=== PATIENT | female | born 1960 | race Caucasian/White ===

== ENCOUNTER 2018-09-09 22:30 | Inpatient (IN) ==
--- NOTE | 2018-09-09 23:08 | Emergency Department Note ---
Disposition Clinical Impression: Bradycardia Syncope Qualifiers: Syncope type: unspecified Qualified Code(s): R55 - Syncope and collapse Head injury Qualifiers: Encounter type: initial encounter Qualified Code(s): S09.90XA - Unspecified injury of head, initial encounter Disposition: Admitted As Inpatient Condition: Good Time of Disposition: 00:53 General Adult HPI - General Chief complaint: ED General Medical Stated complaint: "fell at work and hit head" Time Seen by Provider: 09/09/18 22:54 Source: patient Mode of arrival: wheelchair Limitations: no limitations Nursing Notes Reviewed: Yes Vital Signs Reviewed: Yes - History of Present Illness HPI Narrative: Patient is a 58-year-old female with past medical history of diabetes. She presents today due to syncope. Patient states that she was at work, was getting ready to get something off a shelf, was reaching up and she said that she felt "funny ". She did not have any chest pain or shortness of breath at that time but said she felt maybe lightheaded. She then states that she passed out and fell backwards, hit her head on the hard ground. She woke up and was not confused. Denies any other symptoms of nausea, vomiting, numbness, tingling, weakness, headache, chest pain, shortness, chest pain, abdominal pain. She says that she drove home and continued to have episodes of "feeling funny ". She said that she took her pulse and it was 29. She does not have a history of any cardiac disease, previous AK or stent placement, history of previous episodes of bradycardia that she knows of, is not on any medications for rate control. She also notes that she just recently had cataract surgery within the past week and does use eye drops. She says that she is currently taking prednisone and is unsure of the other eye drop. Not on blood thinners - Related Data Home Medications Medication Instructions Recorded Confirmed Effexor 75 mg PO DAILY 07/25/17 09/10/18 Lyrica 100 mg PO DAILY 07/25/17 09/10/18 Aspirin 81 mg PO DAILY 09/10/18 09/10/18 Ketorolac OPTH Soln 1 drop LEFT EYE BID 09/10/18 09/10/18 PrednisoLONE Acetate 1% Opth 1 drop LEFT EYE BID 09/10/18 09/10/18 Allergies Allergy/AdvReac Type Severity Reaction Status Date / Time codeine Allergy Mild Rash Verified 07/25/17 14:28 lisinopril Allergy Anaphylaxis Verified 07/25/17 14:28 meperidine [From Demerol] Allergy Rash Verified 07/25/17 14:29 All systems ED: reviewed and negative except as stated. Constitutional: Denies: fever Cardiovascular: Reports: other (Bradycardia). Denies: chest pain Respiratory: Denies: cough, dyspnea Gastrointestinal: Denies: abdominal pain, nausea, vomiting, diarrhea Genitourinary: Denies: urgency, dysuria Musculoskeletal: Denies: back pain, neck pain Neurological: Reports: other (Head injury). Denies: headache, weakness, numbness, paresthesias Past Medical History - Past Medical History Attestation: Yes The following information was validated with the patient. Source: patient Medical history: Reports: non-contributory - Social History Smoking Status: Never smoker Smokeless Tobacco Status: No Alcohol use: Reports: none Physical Exam - General Limitations: no limitations General appearance: alert, in no apparent distress - Head Head exam: atraumatic, normocephalic, normal inspection, other (No evidence of dumont sign, raccoon eyes, no lacerations or lesions) - Eye Eye exam: Present: normal appearance, PERRL, EOMI - ENT ENT exam: normal exam, normal oropharynx, mucous membranes moist - Neck Neck exam: Present: normal inspection, full ROM, trachea midline. Absent: tenderness - Chest Chest inspection: Present: normal inspection, symmetric chest wall rise - Respiratory Respiratory exam: Present: normal lung sounds bilaterally - Cardiovascular Cardiovascular exam: Present: normal rhythm, bradycardia (30s), normal heart sounds. Absent: irregular rhythm - Abdominal Exam Abdominal exam: Present: soft, Non-Tender. Absent: tenderness, distention, gua rding, rebound, rigidity - Extremities Exam Extremities exam: Present: normal inspection, full ROM. Absent: tenderness, pedal edema - Neurological Exam Neurological exam: Present: alert, oriented X3, CN II-XII intact. Absent: motor sensory deficit - Expanded Neurological Exam Patient oriented to: Present: person, place, time Speech: Present: fluid speech Cranial nerves: EOM function (II, III, IV, ): Normal, facial sensation (V): Normal, facial palsy (VII): Normal, spinal accessory function (XI): Normal, tongue deviation (XII): Normal Motor strength - LUE: 5/5 Motor strength - RUE: 5/5 Motor strength - LLE: 5/5 Motor strength - RLE: 5/5 Sensory exam upper extremity: light touch: Normal Sensory exam lower extremity: light touch: Normal Coma Scale Eye Opening: Spontaneous Coma Scale Motor Response: Obeys Commands Coma Scale Verbal Response: Oriented Coma Scale Total: 15 - Psychiatric Psychiatric exam: Present: normal affect, normal mood - Skin Skin exam: Present: warm, dry, intact, normal color Course Course Narrative: Patient has no focal neurologic deficits on exam. No obvious signs of head injury. She does have a reported syncopal event with a fall and hitting her head with questionable LOC. We will go ahead and perform CT head and cervical spine. She was also found to be bradycardic on initial presentation with second-degree AV block. Blood pressure is stable at this time. She is currently asymptomatic. We will give the patient atropine to see if she is responsive. We will also go ahead and give glucagon as patient is currently on eyedrops after recent cataract surgery and could be possible beta manuel eyedrop. Also obtain basic lab work, CBC, BMP, troponin, chest x-ray. We will touch base with cardiology after atropine and glucagon to see patient needs a pacemaker placed. 00:42 troponin negative. No major concerning lab abnormality. Chest x-ray negative. CT head and cervical spine negative. Blood pressure remained stable throughout her stay. She remains bradycardic in the 30s to 40s. I talked with core man Dr. Harris, discussed her syncopal episode, heart rate, blood pressures, cardiac workup. Patient has had stable blood pressures and has been asymptomatic during her ED stay despite pulse in the 30s to 40s. We did try atropine and glucagon without any response and heart rate. He stated that since the patient is asymptomatic and blood pressure stable, he did not feel that the patient required a temporary pacer placement emergently. He recommended consult to cardiology, placing pads on the patient (this was done upon patient presentation along with crash cart at bedside), and monitoring in the ICU. He did state that transcutaneous pacing could be considered if the pat ientwas symptomatic. Patient is currently a somatic and has normal blood pressures that this will not be done at this time. I spoke with hospitalist Dr. Heart who is accepted the patient for ICU monitoring. Pads are in place. Patient will need telemetry monitoring overnight. Cardiology consult has been placed. Chest X-Ray 09/09/18 23:06 IMPRESSION: No acute cardiopulmonary disease. D/ / Dat Garza MD / Dat Garza MD Interpreting Provider: Dat Garza MD Cervical Spine CT 09/09/18 23:12 IMPRESSION: No acute abnormality of the cervical spine. D/ / Rolando Eden MD / Rolando Eden MD Interpreting Provider: Rolando Eden MD Head CT 09/09/18 23:12 IMPRESSION: No acute intracranial abnormality. Posterior scalp hematoma. D/ / Dat Garza MD / Dat Garza MD Interpreting Provider: Dat Garza MD Vital Signs Temperature 98.7 F 09/09/18 22:56 Pulse Rate 44 09/09/18 22:56 Respiratory Rate 17 09/09/18 22:56 Blood Pressure 120/62 09/09/18 22:56 O2 Sat by Pulse Oximetry 100 09/09/18 22:56 Temperature 98.7 F 09/09/18 22:56 Pulse Rate 42 09/10/18 00:13 Respiratory Rate 15 09/10/18 00:13 Blood Pressure 138/40 09/10/18 00:13 O2 Sat by Pulse Oximetry 100 09/10/18 00:13 Oxygen Delivery Oxygen Delivery Room Air Medical Decision Making - MDM Narrative Medical decision making narrative: Patient has no focal neurologic deficits on exam. No obvious signs of head injury. She does have a reported syncopal event with a fall and hitting her head with questionable LOC. We will go ahead and perform CT head and cervical spine. She was also found to be bradycardic on initial presentation with second-degree AV block. Blood pressure is stable at this time. She is currently asymptomatic. We will give the patient atropine to see if she is responsive. We will also go ahead and give glucagon as patient is currently on eyedrops after recent cataract surgery and could be possible beta manuel eyedrop. Also obtain basic lab work, CBC, BMP, troponin, chest x-ray. We will touch base with cardiology after atropine and glucagon to see patient needs a pacemaker placed. 00:42 troponin negative. No major concerning lab abnormality. Chest x-ray negative. CT head and cervical spine negative. Blood pressure remained stable throughout her stay. She remains bradycardic in the 30s to 40s. I talked with core man Dr. Harris, discussed her syncopal episode, heart rate, blood pressures, cardiac workup. Patient has had stable blood pressures and has been asymptomatic during her ED stay despite pulse in the 30s to 40s. We did try atropine and glucagon without any response and heart rate. He stated that since the patient is asymptomatic and blood pressure stable, he did not feel that the patient required a temporary pacer placement emergently. He recommended consult to cardiology, placing pads on the patient (this was done upon patient presentation along with crash cart at bedside), and monitoring in the ICU. He did state that transcutaneous pacing could be considered if the patientwas symptomatic. Patient is currently a somatic and has normal blood pressures that this will not be done at this time. I spoke with hospitalist Dr. Heart who is accepted the patient for ICU monitoring. Pads are in place. Patient will need telemetry monitoring overnight. Cardiology consult has been p michelleed. - Medical Records Medical records reviewed: Yes I reviewed the patient's medical records. - Lab Data Lab results reviewed: Yes I reviewed the patient's lab results. Result diagrams: 09/10/18 04:23 09/09/18 23:20 Lab Results 09/09/18 09/09/18 09/09/18 Range/Units 23:20 23:20 23:20 WBC 11.3 H (4.3-11.1) K/mcL RBC 3.80 L (3.82-4.97) M/mcL Hgb 11.3 L (11.5-15.4) g/dL Hct 34.9 L (35.3-44.9) % MCV 91.8 (83.0-100.0) fL MCH 29.7 (28.0-33.3) pg MCHC 32.4 (31.6-35.5) g/dL RDW 13.2 (11.5-14.5) % Plt Count 245 (140-400) K/mcL MPV 10.7 (9.4-12.4) fL Immature Gran % 0.3 (0-4) % Seg Neutrophils % 78.6 % Lymphocytes % 13.5 % Monocytes % 7.3 % Eosinophils % 0.0 % Basophils % 0.3 % Neutrophils # 8.9 (1.6-8.9) K/mcL Lymphocytes # 1.5 (0.6-4.6) K/mcL Monocytes # 0.8 (0.0-1.3) K/mcL Eosinophils # 0.0 (0.0-0.6) K/mcL Basophils # 0.0 (0.0-0.2) K/mcL PT 11.6 (9.4-12.1) Seconds INR 1.0 APTT 31.9 (26.0-36.0) Seconds Sodium 139 (136-145) mEq/L Potassium 4.6 (3.5-5.1) mEq/L Chloride 112 H (98-107) mEq/L Carbon Dioxide 20 L (23-29) mEq/L BUN 44 H (6-20) mg/dL Creatinine 0.98 (0.60-1.20) mg/dL Est GFR ( Amer) > 60 (> 60) Est GFR (Non-Af Amer) 58 L (> 60) BUN/Creatinine Ratio 45 H (6-26) Glucose 137 H (70-105) mg/dL Calculated Osmolality 301 H (280-300) Calcium 9.4 (8.6-10.3) mg/dL Troponin I < 0.03 (< 0.04) ng/mL - Radiology Data Radiology results reviewed: Yes I reviewed the patient's radiology results. - EKG Data EKG #1 EKG attestation: Yes I reviewed and interpreted this EKG. EKG results narrative: Sinus bradycardia with second-degree AV block. Rate 32. QRS 164. QTC 480. Normal axis. No acute ST elevation or depression. T-wave inversion in V2. This is changed from previous EKG which showed sinus tachycardia on 11/17/2013. Critical Care Time Critical Care Time: Yes Total Critical Care Time: 35 Attestation: Dr. Fernandez note: Patient seen in conjunction with emergency resident Dr. Claudio Contreras. Please see his charting for complete documentation. I spent [id number] time with the patient and I agree with patient's treatment and disposition. Patient was agustin serrano today and felt vague weakness. She checked her heart rate and it was low. She then had a syncopal event which was not preceded by headache chest pain shortness of breath nausea vomiting or diarrhea. Denies such symptoms prior. She is on a beta manuel eyedrop for her eye surgery about one week ago. Denies any history of same symptoms. Critical care time noted. Patient's are stable in the ER between 33 and 38 beats a minute without significant or persistent hypotension. Pacer pads were placed but not necessary to be used. S.B.A.R. - S.B.A.Maribell Situation: Demographics, MOA Background: Presenting Complaint, Relevant PMH, Meds, & Allergies Assessment: Vital Signs, Course and respsone to treatment, Exam Concerns, Patient/Family Expectation, Pertinant Lab Results Recommendation: Barrier(s) to disposition, Recommendation based on pending stud ies, treatments, or consults S.B.A.ROzzy Report Given to: Dr. Una Arizmendi Repor Time: 00:54
[2018-09-09] MEDS ORDERED: *HR* Atropine Sulfate 1 MG/10 ML SYRINGE IVP ONE (23:11)
[2018-09-09 23:42] LABS: Basophils % 0.3 %; Hematocrit 34.9 % (35.3-44.9); Hemoglobin 11.3 g/dL (11.5-15.4); Immature Granulocytes % 0.3 % (0-4); Lymphocytes # 1.5 K/mcL (0.6-4.6); Lymphocytes % 13.5 %; Mean Corpuscular HGB Conc 32.4 g/dL (31.6-35.5); Mean Corpuscular Hemoglobin 29.7 pg (28.0-33.3); Mean Corpuscular Volume 91.8 fL (83.0-100.0); Mean Platelet Volume 10.7 fL (9.4-12.4); Monocytes # 0.8 K/mcL (0.0-1.3); Monocytes % 7.3 %; Neutrophils # 8.9 K/mcL (1.6-8.9); Platelet Count 245 K/mcL (140-400); Red Cell Distribution Width 13.2 % (11.5-14.5); Segmented Neutrophils % 78.6 %
[2018-09-09 23:54] LABS: Prothrombin Time 11.6 Seconds (9.4-12.1)
[2018-09-09 23:57] LABS: Activated Partial Thrombo Time 31.9 Seconds (26.0-36.0)
[2018-09-09 23:59] LABS: BUN/Creatinine Ratio 45 (6-26); Blood Urea Nitrogen 44 mg/dL (6-20); Calcium 9.4 mg/dL (8.6-10.3); Carbon Dioxide 20 mEq/L (23-29); Chloride 112 mEq/L (98-107); Glucose 137 mg/dL (70-105); Osmolality,Calculated 301 (280-300); Potassium 4.6 mEq/L (3.5-5.1); Sodium 139 mEq/L (136-145); eGFR For Non-African Americans 58 (> 60)
[2018-09-10] LABS: Troponin I < 0.03 ng/mL (< 0.04)
--- NOTE | 2018-09-10 01:01 | Internal Med History&Physical ---
<Karlene Skinner - Last Filed: 09/10/18 06:02> Date of Encounter: 09/10/18 Time of Encounter: 01:00 Internal Medicine - H&P: HPI Admitted From: Emergency Dept Plans for Post Hospital Care: Home History of present illness: Ms. Crow is a 58 year old female who presents for bradycardia and unwitnessed syncopal episode today. Reports she was at client's house, reached overhead to get an item off a shelf just before she passed out, fell backwards and hit the back of her head. Admits vision change "everything got really bright " just before passing out. No CP, heart palpitations, dyspnea, nausea, vomiting. Admits to feeling diaphoretic and confused after waking up. Patient states that she woke up this morning feeling perfectly fine. Earlier in the day, states her vision got really bright while bending forward, she felt off-balance and had to sit down and felt diaphoretic, but this resolved on its own. Denies personal h/o DE, abnormal cardiac rhythm, PE, seizure. Denies recent medication changes. On arrival to ED, she was asymptomatic with HR 30's-40's. Hemodynamically stable with SBP 120-130's. CT imaging of head negative for acute intracranial abnormalities. CT cervical spine negative for fracture, showed normal alignment. CXR showed no acute cardiopulmonary process. CBC and BMP were without significant derrangement. EKG showed sinus bradycardia with 2nd degree AV block, no evidence of ischemia. Atropine and glucagon were not effective in raising HR. ED consulted cardiology, who recommended placement of transcutaneous pacer pads and admission to ICU for close observation. At time of my exam, patient was alert and appeared comfortable. She endorsed no complaints. 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, never smoker, no EtOH, no drugs FH: CVA, heart disease Past Med Surg Social Fam HX - Past Medical History Medical history: non-contributory, DVT, diabetes Psychiatric history: no psych history - Past Surgical History Additional surgical history: BKA of left leg - Social History Smoking Status: Never smoker Smokeless Tobacco Status: No Alcohol use: none Drug use: none Internal Medicine - H&P: Meds Effexor 75 mg PO DAILY 07/25/17 [History] Lyrica 100 mg PO DAILY 07/25/17 [History] Aspirin 81 mg PO DAILY 09/10/18 [History] Ketorolac OPTH Soln 1 drop LEFT EYE BID 09/10/18 [History] PrednisoLONE Acetate 1% Opth 1 drop LEFT EYE BID 09/10/18 [History] Allergy/AdvReac Type Severity Reaction Status Date / Time codeine Allergy Mild Rash Verified 07/25/17 14:28 lisinopril Allergy Anaphylaxis Verified 07/25/17 14:28 meperidine [From Demerol] Allergy Rash Verified 07/25/17 14:29 All Systems PM: A 10-system review of systems was performed and is negative for pertinent findings except as documented above in the HPI. - Constitutional Vitals: Temp Pulse Resp BP Pulse Ox 98.7 F 33 19 132/43 97 09/09/18 22:56 09/10/18 00:51 09/10/18 00:51 09/10/18 00:51 09/10/18 00:51 General appearance: Present: A&O X 3, pleasant, no acute distress, answers questions appropriately Exam: . - Head Additional comments: Posterior scalp laceration, no active bleeding - Eye Eye exam: Present: EOMI, normal appearance, PERRL. Absent: nystagmus - Neck Neck exam general surgery: Present: full ROM, normal inspection, supple - Respiratory Respiratory exam: Present: CTAB. Absent: rales, respiratory distress, rhonchi, wheezes - Cardiovascular Cardiovascular exam: Present: bradycardia, irregular rhythm, +S1, +S2. Absent: diastolic murmur, systolic murmur - GI/Abdominal GI/Abdominal exam: Present: normal bowel sounds, soft. Absent: tenderness - Extremities Exam Extremities exam: Present: warm, radial pulses palpable and symmetrical. Absent: cyanotic Additional comments: Left BKA; amputation of first 3 digits of right foot - Back Exam Back exam: Present: normal inspection - Neurological Exam Neurological exam: Present: alert, CN II-XII intact, oriented X3, no focal deficits, strengths equal and symetr throughout. Absent: facial droop, speech deficit - Psychiatric Psychiatric exam: Present: normal affect, normal mood - Skin Skin exam: Present: dry, warm. Absent: cyanosis, diaphoretic Internal Med - H&P Results - Labs CBC & Chem 7: 09/10/18 04:23 09/10/18 04:23 Labs: Short CBC 09/09/18 Range/Units 23:20 WBC 11.3 H (4.3-11.1) K/mcL Hgb 11.3 L (11.5-15.4) g/dL Hct 34.9 L (35.3-44.9) % Plt Count 245 (140-400) K/mcL Neutrophils # 8.9 (1.6-8.9) K/mcL BMP 09/09/18 23:20 Sodium 139 Potassium 4.6 Chloride 112 H Carbon Dioxide 20 L BUN 44 H Creatinine 0.98 Glucose 137 H Calcium 9.4 Cardiac Enzymes 09/09/18 Range/Units 23:20 Troponin I < 0.03 (< 0.04) ng/mL - Impressions ITS Impressions Chest X-Ray 09/09/18 23:06 IMPRESSION: No acute cardiopulmonary disease. D/ / Dat Garza MD / Dat Garza MD Interpreting Provider: Dat Garza MD Cervical Spine CT 09/09/18 23:12 IMPRESSION: No acute abnormality of the cervical spine. D/ / Rolando Eden MD / Rolando Eden MD Interpreting Provider: Rolando Eden MD Head CT 09/09/18 23:12 IMPRESSION: No acute intracranial abnormality. Posterior scalp hematoma. D/ / Dat Garza MD / Dat Garza MD Interpreting Provider: Dat Garza MD - Assessment and Plan (1) Bradycardia Current Visit: Yes Status: Acute Assessment and plan: - Hemodynamically stable, continued bradycardia - HR 30's-40's, stable BP, asymptomatic in ED - Second degree AV block on EKG - EKG also shows sinus bradycardia, CO intervals don't appear prolonged, narrow QRS complex, no ST segment elevations or depressions - Telemetry strips show progressive lengthening of CO intervals before dropped QRS - Troponin < 0.03 - Electrolytes WNL - HR didn't respond to atropine or glucagon - Takes no AV node blocking medications at home - ED consulted cardiology's Dr. Harris, recommended placement of transcutaneous pads - Cardiology consulted - Continue cardiac monitoring - Trend troponins x 2 - TSH level - Check magnesium - Repeat EKG in AM (2) Syncope Current Visit: Yes Status: Acute Assessment and plan: - Syncopal episode likely d/t decreased HR resulting in temporarily insufficient perfusion to brain - Trauma to head as result of fall - CXR no acute cardiopulmonary processes - CT head no acute intracranial abnormalities, posterior scalp hematoma - CT cervical spine no acute abnormalities, normal alignment - Blood glucose 137 - Hgb 11.3 - Electrolytes WNL - Troponin < 0.03 - Plan as above Qualifiers: Syncope type: unspecified Qualified Code(s): R55 - Syncope and collapse (3) History of gastric bypass Current Visit: Yes Status: Acute (4) DVT prophylaxis Current Visit: Yes Status: Acute Assessment and plan: SubQ heparin (5) History of left below knee amputation Current Visit: Yes Status: Acute - Time Spent With Patient Total time spent is greater than 50% in coordination of care (as documented) at patient's floor/unit and/or counseling patient: <Alex Cole - Last Filed: 09/10/18 06:28> Date of Encounter: 09/10/18 Time of Encounter: 04:40 Past Med Surg Social Fam HX - Past Medical History Attestation: Yes The following information was validated with the patient. Source: patient - Constitutional Constitutional: no chills, no fever(s) - EENT Eyes: no change in vision Ears: no ear pain, no tinnitus Nose, mouth and throat: no nasal congestion, no nasal discharge, no sore throat - Cardiovascular Cardiovascular ROS IM: irregular heart rhythm, lightheadedness, syncope, no chest pain, no dyspnea, no edema, no orthopnea - Respiratory Respiratory: no cough, no hemoptysis, no chest congestion, no excessive phlegm production, no change in phlegm color - Gastrointestinal Gastrointestinal: no abdominal pain, no diarrhea, no hematemesis, no hematochezia, no melena, no vomiting - Genitourinary Genitourinary: no dysuria, no flank pain, no hematuria - Musculoskeletal Musculoskeletal ROS IM: no arthralgias, no back pain - Integumentary Integumentary IM: no rash, no jaundice - Neurological Neurological ROS: no convulsions, no dizziness, no focal weakness, no frequent falls, no headache(s), no numbness, no vertigo - Psychiatric Psychiatric: no anxiety, no depression - Endocrine Endocrine IM: no polydipsia, no polyuria - Allergic/Immunologic Allergic/Immunologic: no GI upset with certain foods - Constitutional Vitals: Temp Pulse Resp BP Pulse Ox 97.7 F 46 13 145/54 95 09/10/18 02:00 09/10/18 06:00 09/10/18 06:00 09/10/18 06:00 09/10/18 06:00 General appearance: Present: A&O X 3, pleasant, no acute distress - Eye Eye exam: Present: EOMI, PERRL. Absent: scleral icterus - ENT ENT exam: Present: mucous membranes dry, normal exam, normal oropharynx - Neck Neck exam general surgery: Present: full ROM, supple, trachea midline. Absent: tenderness, nuchal rigidity, thyromegaly - Respiratory Respiratory exam: Present: CTAB - Cardiovascular Cardiovascular exam: Present: bradycardia, +S1, +S2. Absent: diastolic murmur, systolic murmur - GI/Abdominal GI/Abdominal exam: Present: normal bowel sounds, soft. Absent: guarding, hepatomegaly, mass, rebound, splenomegaly, tenderness - Extremities Exam Extremities exam: Present: full ROM, warm, radial pulses palpable and symmetri manuel. Absent: calf tenderness - Back Exam Back exam: Absent: CVA tenderness (L), CVA tenderness (R) - Neurological Exam Neurological exam: Present: alert, CN II-XII intact, oriented X3, no focal deficits, strengths equal and symetr throughout - Psychiatric Psychiatric exam: Present: normal affect, normal mood - Skin Skin exam: Present: dry, intact, warm Internal Med - H&P Results - Labs CBC & Chem 7: 09/10/18 04:23 09/10/18 04:23 Labs: Short CBC 09/09/18 09/10/18 Range/Units 23:20 04:23 WBC 11.3 H 8.5 (4.3-11.1) K/mcL Hgb 11.3 L 9.8 L D (11.5-15.4) g/dL Hct 34.9 L 30.5 L (35.3-44.9) % Plt Count 245 210 (140-400) K/mcL Neutrophils # 8.9 6.0 (1.6-8.9) K/mcL BMP 09/09/18 09/10/18 23:20 04:23 Sodium 139 141 Potassium 4.6 4.0 Chloride 112 H 113 H Carbon Dioxide 20 L 22 L BUN 44 H 40 H Creatinine 0.98 0.68 Glucose 137 H 107 H Calcium 9.4 9.0 Cardiac Enzymes 09/09/18 09/10/18 Range/Units 23:20 04:23 Troponin I < 0.03 < 0.03 (< 0.04) ng/mL Liver Function 09/10/18 Range/Units 04:23 Total Bilirubin 0.5 (0.3-1.0) mg/dL AST 15 (13-39) Units/L ALT 12 (7-52) Units/L Alkaline Phosphatase 78 (34-104) Units/L Albumin 3.8 (3.5-5.7) g/dL - EKG Data -: EKG Interpreted by Myself - EKG Data Prior EKG available for review: no EKG comments: 09/10/18 06:24 Mobitz II - Impressions ITS Impressions Chest X-Ray 09/09/18 23:06 IMPRESSION: No acute cardiopulmonary disease. D/ / Dat Garza MD / Dat Garza MD Interpreting Provider: Dat Garza MD Cervical Spine CT 09/09/18 23:12 IMPRESSION: No acute abnormality of the cervical spine. D/ / Rolando Eden MD / Rolando Eden MD Interpreting Provider: Rolando Eden MD Head CT 09/09/18 23:12 IMPRESSION: No acute intracranial abnormality. Posterior scalp hematoma. D/ / Dat Garza MD / Dat Garza MD Interpreting Provider: Dat Garza MD - Diagnostic Studies Chest x-ray Status: image reviewed by me (negative) - Assessment and Plan (1) Bradycardia Current Visit: Yes Status: Acute (2) Syncope Current Visit: Yes Status: Acute Qualifiers: Syncope type: unspecified Qualified Code(s): R55 - Syncope and collapse (3) DVT prophylaxis Current Visit: Yes Status: Acute (4) History of gastric bypass Current Visit: Yes Status: Acute (5) History of left below knee amputation Current Visit: Yes Status: Acute - Time Spent With Patient Total time spent is greater than 50% in coordination of care (as documented) at patient's floor/unit and/or counseling patient: - Attending Attestation I discussed patient OUZINKIE, past medical history, review of systems, lab data, imaging data, and exam findings with Dr. Alarcon. I then saw and examined patient independently in the ICU. Currently, she is sleeping and easily arousable. She is asymptomatic. Her heart rate wavers between a low of 29 and 50 as I am examining and interviewing her. Blood pressure is preserved. I reviewed her medications and she takes no AV natalie blocking agents. She confirms to me at least 2 episodes of syncope yesterday and likely several more. She has never had any prior heart disease history. Given her sustained bradycardia and concern for Mobitz 2 pattern on EKG, I am concerned that she likely needs at least temporary pacemaker and, possibly, permanent pacemaker if her bradycardia persists. Cardiology has been consulted and we will await their recommendations. Meanwhile, we will trend troponins, order an ECHO, and monitor her in ICU until her cardiac status stabilizes. Other than my comments above and documented exam findings, I agree with Dr. Alarcon's assessment and plan.
[2018-09-10] MEDS ORDERED: Naloxone 0.4 MG/ML INJ IVP PRN (01:35)
[2018-09-10 04:40] LABS: Basophils % 0.2 %; Hematocrit 30.5 % (35.3-44.9); Hemoglobin 9.8 g/dL (11.5-15.4); Immature Granulocytes % 0.2 % (0-4); Lymphocytes # 1.9 K/mcL (0.6-4.6); Lymphocytes % 21.9 %; Mean Corpuscular HGB Conc 32.1 g/dL (31.6-35.5); Mean Corpuscular Hemoglobin 29.2 pg (28.0-33.3); Mean Corpuscular Volume 90.8 fL (83.0-100.0); Mean Platelet Volume 10.4 fL (9.4-12.4); Monocytes # 0.6 K/mcL (0.0-1.3); Monocytes % 7.2 %; Platelet Count 210 K/mcL (140-400); Red Blood Count 3.36 M/mcL (3.82-4.97); Red Cell Distribution Width 13.1 % (11.5-14.5); Segmented Neutrophils % 70.5 %
[2018-09-10 05:02] LABS: Alanine Aminotransferase 12 Units/L (7-52); Albumin 3.8 g/dL (3.5-5.7); Albumin/Globulin Ratio 1.5 (1.1-2.2); Alkaline Phosphatase 78 Units/L (34-104); Aspartate Amino Transferase 15 Units/L (13-39); BUN/Creatinine Ratio 59 (6-26); Bilirubin,Total 0.5 mg/dL (0.3-1.0); Blood Urea Nitrogen 40 mg/dL (6-20); Carbon Dioxide 22 mEq/L (23-29); Chloride 113 mEq/L (98-107); Globulin 2.5 g/dL (2.4-3.5); Glucose 107 mg/dL (70-105); Magnesium 1.9 mg/dL (1.6-2.6); Osmolality,Calculated 302 (280-300); Sodium 141 mEq/L (136-145); Total Protein 6.3 g/dL (6.4-8.9); eGFR For Non-African Americans > 60 (> 60)
[2018-09-10] MEDS ORDERED: *HR* Atropine Sulfate 1 MG/10 ML SYRINGE ONE (06:03)
[2018-09-10] MEDS: *HR* Heparin 5,000 UNIT/ML VIAL SQ SCH ×2 (06:07→18:38)
--- NOTE | 2018-09-10 10:06 | Cardiology Consult Note ---
<Aracelis Singleton - Last Filed: 09/10/18 14:20> Date of Encounter: 09/10/18 Time of Encounter: 10:05 Assessment and Plan (1) Second degree AV block Current Visit: Yes Status: Acute Patient found to have second degree AV block, which transitions between Mobitz type 1 and Mobitz type 2 on telemetry Sympomatic with progressive fatigue, lightheadedness, and syncopal episode EKG shows sinus bradycardia with HR 32, RBBB, intermittent, 2:1 second degree AV block Mobitz type 1. ECHO- sinus bradycardia, HR 40-50's, LVEF 65%, moderate LV diastolic dysfunction, normal RV structure and function, mild tricuspid regurgitation, no pulmonary hypertension. No improvement after atropine and glucagon Patient will need permanent pacemaker placed, she is amenable and interventionalist will be consulted for placement. (2) Syncope Current Visit: Yes Status: Acute Patient presents after syncopal episode States that she has had increasing fatigue and lightheadedness over several weeks CT head and cervical spine negative for abnormalities Secondary to 2nd degree AV block Patient to have pacemaker placement today. Qualifiers: Syncope type: unspecified Qualified Code(s): R55 - Syncope and collapse (3) DVT prophylaxis Current Visit: Yes Status: Acute SQ heparin Discussion w patient/family: The assessment and plan as outlined above was discussed with the patient and/or family members who expressed understanding and agreement. All questions were answered. Thank you for involving us in the care of your patient. Please call with any questions. History of Present Illness Consult date: 09/10/18 Consult reason: bradycardia Chief complaint: syncope History of present illness: Ms. Crow is a 58 year old female who presented after syncopal episode. PMH of DM s/p left BKA for charcot foot, obesity s/p gastric bypass and recent cataract surgery 2 weeks ago. She states that she has had progressive fatigue and lightheadedness over the past several weeks. 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 Later that day while at home she was in her garage, and reaching overhead to grab an item when she had a syncopal episode and fell backwards on to the ground. She struck the back of her head on the floor. She regained consciousness and presented to ED. She denies any seizure, chest pain, shortness of breath, incontinence during the episode. Past Med Surg Social Fam HX - Past Medical History Medical history: non-contributory, DVT, diabetes Psychiatric history: no psych history - Past Surgical History Additional surgical history: BKA of left leg, gastric bypass. - Social History Smoking Status: Never smoker Smokeless Tobacco Status: No Alcohol use: none Drug use: none Medications and Allergies Pregabalin [Lyrica] 100 mg PO BID 07/25/17 [History] Venlafaxine HCl [Venlafaxine HCl ER] 75 mg PO DAILY 07/25/17 [History] Aspirin [Adult Aspirin] 81 mg PO DAILY 09/10/18 [History] Gatifloxacin [Zymaxid] 2.5 ml LEFT EYE BID 09/10/18 [History] Ketorolac OPTH Soln [Acular] 1 drop LEFT EYE BID 09/10/18 [History] PrednisoLONE Acetate 1% Opth [PredFORTE 1%] 1 drop LEFT EYE BID 09/10/18 [History] Allergy/AdvReac Type Severity Reaction Status Date / Time codeine Allergy Mild Rash Verified 07/25/17 14:28 lisinopril Allergy Anaphylaxis Verified 07/25/17 14:28 meperidine [From Demerol] Allergy Rash Verified 07/25/17 14:29 All Systems Review: The remainder of the systems were reviewed and are negative - Constitutional Constitutional: weakness, no chills, no fever(s), no frequent falls - EENT Eyes: no loss of vision Nose, mouth and throat: no dysphagia - Cardiovascular Cardiovascular: lightheadedness, syncope, no chest pain at rest, no chest pain with exertion, no diaphoresis, no dyspnea at rest, no dyspnea on exertion, no leg edema, no orthopnea, no palpitations, no paroxysmal nocturnal dyspnea - Respiratory Respiratory: no cough, no dyspnea - Gastrointestinal Gastrointestinal: no abdominal pain, no constipation, no diarrhea, no hematochezia, no melena - Musculoskeletal Musculoskeletal: no arthralgias, no myalgias - Integumentary Integumentary: no erythema, no rash - Neurological Neurological: dizziness, numbness, syncope, tingling - Psychiatric Psychiatric: no anxiety, no depression - Hematological/Lymphatic Hematologic/Lymphatic: no easy bleeding, no easy bruising Physical Examination Vital Signs, Last 4 Hours Temp Pulse Resp BP Pulse Ox 09/10/18 10:00 48 18 123/108 96 09/10/18 09:00 45 12 158/60 95 09/10/18 08:00 44 11 142/47 94 09/10/18 07:35 97.9 F 09/10/18 07:00 37 16 157/55 94 General: Conversant, No Apparent Distress HEENT: Atraumatic, Normocephaly, Mucus Membranes Moist Neck: No JVD, Normal carotid pulses Cardiac: Normal S1 and S2, No Murmur, Other (Bradycardic, HR in the 30-40's) Lungs: Normal Breath Sounds, No Wheeze, Rales, Rhonchi Neuro: Alert and responsive, No focal deficits noted Abdomen: Soft, Non-Tender Skin: No rashes noted on visualized skin Musculoskeletal: No Chest Wall Tenderness Extremities: No Clubbing, No Cyanosis, No Edema, Normal Pulses (Pulses 3+, symmetrical, slow rate) Results 09/10/18 04:23 09/10/18 04:23 Lab Results 09/09/18 09/09/18 09/09/18 23:20 23:20 23:20 WBC 11.3 H Hgb 11.3 L Hct 34.9 L Plt Count 245 INR 1.0 APTT 31.9 Sodium 139 Potassium 4.6 Chloride 112 H Carbon Dioxide 20 L BUN 44 H Creatinine 0.98 Glucose 137 H Calcium 9.4 Magnesium Total Bilirubin AST ALT Alkaline Phosphatase Troponin I < 0.03 TSH 09/10/18 09/10/18 09/10/18 04:23 04:23 04:23 WBC 8.5 Hgb 9.8 L D Hct 30.5 L Plt Count 210 INR APTT Sodium 141 Potassium 4.0 Chloride 113 H Carbon Dioxide 22 L BUN 40 H Creatinine 0.68 Glucose 107 H Calcium 9.0 Magnesium 1.9 Total Bilirubin 0.5 AST 15 ALT 12 Alkaline Phosphatase 78 Troponin I TSH 0.811 09/10/18 04:23 WBC Hgb Hct Plt Count INR APTT Sodium Potassium Chloride Carbon Dioxide BUN Creatinine Glucose Calcium Magnesium Total Bilirubin AST ALT Alkaline Phosphatase Troponin I < 0.03 TSH Consult Discharge Plan - Plan Referrals: Dat Briceño [Primary Care Provider] - <HuiTrip medrano A - Last Filed: 09/10/18 14:38> Date of Encounter: 09/10/18 - Attending Attestation I have personally performed a face to face evaluation on this patient. I have reviewed and agree with the documented findings and care plan as documented by the resident. History and Exam by me shows: 58-year-old female with history of diabetes, left BKA, admitted with syncope and found to be in bradycardia. She has had fatigue over the past couple of weeks. AAOX3 in NAD at the bedside Hemodynamically stable Cardiopulmonary exam revealed S1, S2, no murmur; clear lungs Rhythm reviewed - Mobitz 1 and Mobitz 2 second-degree heart block Echo preserved EF, no significant valvular heart disease Impression/plan: No reversible causes of bradycardia identified. Symptomatic second-degree AV block warrants permanent pacemaker placement Trip Kraus MD FAC Assessment and Plan Discussion w patient/family: The assessment and plan as outlined above was discussed with the patient and/or family members who expressed understanding and agreement. All questions were answered. Thank you for involving us in the care of your patient. Please call with any questions. History of Present Illness History of present illness: Ms. Crow is a 58 year old female All Systems Review: The remainder of the systems were reviewed and are negative Physical Examination Vital Signs, Last 4 Hours Temp Pulse Resp BP Pulse Ox 09/10/18 13:57 98.4 F 60 16 152/65 95 09/10/18 12:00 40 18 145/45 95 09/10/18 11:45 98.3 F 09/10/18 11:00 48 115/87 Results 09/10/18 04:23 09/10/18 04:23 Lab Results 09/09/18 09/09/18 09/09/18 23:20 23:20 23:20 WBC 11.3 H Hgb 11.3 L Hct 34.9 L Plt Count 245 INR 1.0 APTT 31.9 Sodium 139 Potassium 4.6 Chloride 112 H Carbon Dioxide 20 L BUN 44 H Creatinine 0.98 Glucose 137 H Calcium 9.4 Magnesium Total Bilirubin AST ALT Alkaline Phosphatase Troponin I < 0.03 TSH 09/10/18 09/10/18 09/10/18 04:23 04:23 04:23 WBC 8.5 Hgb 9.8 L D Hct 30.5 L Plt Count 210 INR APTT Sodium 141 Potassium 4.0 Chloride 113 H Carbon Dioxide 22 L BUN 40 H Creatinine 0.68 Glucose 107 H Calcium 9.0 Magnesium 1.9 Total Bilirubin 0.5 AST 15 ALT 12 Alkaline Phosphatase 78 Troponin I TSH 0.811 09/10/18 09/10/18 04:23 09:42 WBC Hgb Hct Plt Count INR APTT Sodium Potassium Chloride Carbon Dioxide BUN Creatinine Glucose Calcium Magnesium Total Bilirubin AST ALT Alkaline Phosphatase Troponin I < 0.03 < 0.03 TSH
--- NOTE | 2018-09-10 10:26 | Electrocardiograph Report ---
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
--- NOTE | 2018-09-10 11:45 | Event Note ---
Date of Encounter: 09/10/18 Time of Encounter: 11:00 - Cardiology Event Note Electrophysiology consulted by cardiology for 2nd degree AV block and bradycardia. Patient c/o intermittent presyncopal symptoms starting friday. On Friday she experienced syncopal event while standing in her garage. She is found to have symptomatic bradycardia with intermittent 2:1 and mobitz type I AV block (wenckebach) , RBBB. TTE completed shows preserved EF. She does not take any medications that would cause bradycardia. Electrolytes are within normal range. No significant improvement in HR in last 24 hours. HR currently 29-40, b/p 128/100. Discussed with Dr. Pio Tabor, PPM recommended and planned for today at 12:15.
[2018-09-10] MEDS ORDERED: CeFAZolin Syr 2,000MG/20 ML 2,000 MG/20 ML SYRINGE IVPB ONE (11:46)
[2018-09-10] MEDS ORDERED: 0.9 % Sodium Chloride 500 ML ONE (12:23)
[2018-09-10] MEDS ORDERED: Water for inj. (sterile) 10 ML IV ONE (12:23)
--- NOTE | 2018-09-10 12:35 | Pre-Sedation Evaluation ---
Pre-sedation evaluation - Pre-sedation checklist Date of procedure: 09/10/18 Procedure: pacemaker Recent Vitals: Last Vital Signs Temp 98.3 F 09/10/18 11:45 Pulse 40 09/10/18 12:00 Resp 18 09/10/18 12:00 BP 145/45 09/10/18 12:00 Pulse Ox 95 09/10/18 12:00 H&P (including ROS) documented in medical record: Yes Dietary Status: NPO after Midnight Airway Assessment: Patient can open mouth completely, TMJ function normal, Micrognathia (under-bite, receding chin) absent Possible difficult airway: No ASA Classification *see protocol: CLASS II-Mild systemic disease Plan of Care: Pt appropriate candidate for procedure/moderate/conscious sedation, Risks/benefits of procedure/sedation discussed w/ patient/family
[2018-09-10] MEDS ORDERED: *HR* Midazolam HCl 2 MG/2 ML VIAL ONE (12:55)
[2018-09-10] MEDS ORDERED: *HR* FentaNYL (PF) 100 MCG/2 ML VIAL ONE (12:55)
[2018-09-10] MEDS ORDERED: 0.9 % Sodium Chloride 1,000 ML ONE (12:55)
--- NOTE | 2018-09-10 14:09 | Event Note ---
Date of Encounter: 09/10/18 Time of Encounter: 14:08 Evaluated patient in ICU. Comfortable. Continues to have generalized weakness and fatigue. Scheduled for permanent pacemaker placement later today. We will continue to monitor patient in ICU till after pacemaker placed. She may be transferred to a different [facility] with telemetry floor after that
--- NOTE | 2018-09-10 15:19 | Event Note ---
Date of Encounter: 09/10/18 Time of Encounter: 09:45 Interval history: Ms. Crow is a 58-year-old female who presented with unwitnessed syncopal episode yesterday. She stated that she was and she had 2 episodes were applied Colt very tight and she felt dizzy. Then when she was at a client's house she reached over DNI and the light seemed to get very bright and she passed out and the back of her head. She denied any chest pain, heart palpitations, dyspnea, nausea or vomiting. She did wake diaphoretic and confused. In the ED her heart rate was in the 30s to 40s and she was hemodynamically stable with CT head no acute intracranial abnormalities, CT cervical spine negative for fracture with normal alignment. Chest x-ray showed no acute cardiopulmonary process. CBC and BMP were within normal limits. EKG showed bradycardia with second-degree AV block and no evidence of ischemia. Patient was given atropine and glucagon and these did not raise her heart rate she was admitted to the ICU with transcutaneous pacer pads for close observation Cardiology's planning on pacemaker insertion today. Patient was seen and examined at bedside today. She is in no acute distress. She stated that she was feeling fine, she was afraid to get up due to worrying about passing out. She did say that she had a slight headache from hitting her head yesterday. She denied any chest pain, dictations, racing heartbeat, shortness of breath, cough, nausea, vomiting, diarrhea Physical Exam: General: A O 3, answers questions appropriately, no acute distress Head: normocephalic, atraumatic Eyes: KATHY, no icterus Cardio: Bradycardic, occasional will drop beats, no mumurs, rubs, or gallops Respiratory: CTAB, no wheezing, rhonchi, rales Abd: normal bowel sounds, no gaurding or rigidity Extremties: no pedal edema, pulses equal bilaterally, warm, Charcot foot Skin: warm, dry, intact A/P: Bradycardia Secondary to Mobitz type I and Mobitz type II arrhythmia Hemodynamically stable with continued bradycardia in the 30s to 40s and stable blood pressure EKG showed sinus bradycardia, IA intervals but do not appear prolonged, narrow QRS complex, no ST segment elevations or depressions, second-degree AV blocks Prone and less than 0.03 Tara's within normal limits NER the heart rate did not respond to atropine and glucagon and transient Mertzon pacer pads were placed Cardiology was consulted and they will be placing a pacemaker today Syncope Likely due to decreased heart rate with insufficient perfusion to the brain CT head showed no acute intracranial abnormalities in the posterior scalp hematoma CT cervical spine no acute abnormalities in normal alignment Chest x-ray showed no acute cardiopulmonary process Clinical glucose on admission was 137, hemoglobin 11.3, Tara is within normal limits, and troponin less than 0.03 Plan as above bradycardia History of gastric bypass History of below the knee amputation on the left for Charcot foot History of diabetes Patient currently diet controlled Continue to monitor DVT prophylaxis 7 case heparin
[2018-09-10] MEDS ORDERED: Acetaminophen 325 MG TABLET PO PRN (17:06)
[2018-09-10] MEDS: Acetaminophen 325 MG TABLET PO PRN (17:47)
[2018-09-10] MEDS: Venlafaxine XR (24 HR) 75 MG CAP.ER.24H PO SCH (21:02)
[2018-09-10] MEDS: Pregabalin 50 MG CAPSULE PO SCH (21:02)
[2018-09-11] MEDS: Acetaminophen 325 MG TABLET PO PRN ×2 (00:26→08:57)
[2018-09-11 01:04] LABS: Basophils % 0.5 %; Hematocrit 31.6 % (35.3-44.9); Hemoglobin 10.4 g/dL (11.5-15.4); Immature Granulocytes % 0.2 % (0-4); Lymphocytes # 1.6 K/mcL (0.6-4.6); Lymphocytes % 27.3 %; Mean Corpuscular HGB Conc 32.9 g/dL (31.6-35.5); Mean Corpuscular Hemoglobin 29.8 pg (28.0-33.3); Mean Corpuscular Volume 90.5 fL (83.0-100.0); Mean Platelet Volume 10.2 fL (9.4-12.4); Monocytes # 0.5 K/mcL (0.0-1.3); Monocytes % 8.9 %; Neutrophils # 3.7 K/mcL (1.6-8.9); Platelet Count 196 K/mcL (140-400); Red Blood Count 3.49 M/mcL (3.82-4.97); Red Cell Distribution Width 12.8 % (11.5-14.5); Segmented Neutrophils % 63.1 %
[2018-09-11 01:23] LABS: BUN/Creatinine Ratio 35 (6-26); Blood Urea Nitrogen 23 mg/dL (6-20); Calcium 8.7 mg/dL (8.6-10.3); Carbon Dioxide 25 mEq/L (23-29); Chloride 110 mEq/L (98-107); Glucose 83 mg/dL (70-105); Osmolality,Calculated 293 (280-300); Sodium 140 mEq/L (136-145); eGFR For Non-African Americans > 60 (> 60)
[2018-09-11] MEDS: *HR* Heparin 5,000 UNIT/ML VIAL SQ SCH (05:09)
[2018-09-11] MEDS: Pregabalin 50 MG CAPSULE PO SCH (09:14)
[2018-09-11] MEDS: Venlafaxine XR (24 HR) 75 MG CAP.ER.24H PO SCH (09:14)
--- NOTE | 2018-09-11 10:20 | Cardiology Progress Note ---
Date of Encounter: 09/11/18 Time of Encounter: 10:14 Assessment and Plan (1) Second degree AV block Current Visit: Yes Status: Acute Patient found to have second degree AV block type I, 2:1 block and persistent bradycardia. She was having presyncopal and syncopal events for two days. ECHO- sinus bradycardia, HR 40-50's, LVEF 65%, moderate LV diastolic dysfunction, normal RV structure and function, mild tricuspid regurgitation, no pulmonary hypertension. No improvement after atropine and glucagon Dual chamber PPM inserted 09/10/[address] Pio Tabor. There was no complication from her procedure. Post day one device check shows normal functioning device. CXR pending. If no concerning finding she can be discharged home with activity restrictions. Restrictions reviewed and patient voiced understanding. Out-pt f/u will be coordinated by [facility] in one week. ACTIVITY: Moderate activity for the next 7 days. No lifting more than 5 pounds (gallon of milk) for 4-6 weeks. Avoid lifting your arm on the same side as the device for 4 weeks. BATHING /SHOWERING: Do not remove the large bandage over the site for 2 days. Do not allow the device to get wet for 7-10 days. You may bathe/shower, but do not use soap and water on the site. When bathing, keep the site dry by covering with Saran wrap or a towel. WOUND CARE: The white steri-strips will start to peel away and come off after 14 days, or your doctor will remove them after [address] anything into or on top of the incision. Do not use cotton swabs. Do not use any antibiotic ointment or Vitamin E on the site. REMINDERS: You may use electrical devices, such as, microwaves, hair dryers, electric razors, electric blankets, etc. as long as they are in good condition and kept 6-8 inches away from the device. It is recommended to use cell phones on the opposite side of your device. Notify security personnel at the airport that you have a device before you go through airport security screening. When at places with security monitors, such as a grocery store, do not linger near these monitors. It is fine to walk past them in a normal manner. Refer to your owners manual for more specific directions. CARRY YOUR PACEMAKER/ICD CARD WITH YOU AT ALL TIMES Return to work as instructed per physician Resume driving as instructed per physician Keep all scheduled follow up appointments Resume medications as instructed Contact [facility] ( ) if: You develop excessive bleeding from insertion or wound site not controlled by applying pressure You develop a fever greater than 101 degrees Fahrenheit Your incision becomes reddened at or around the site Your incision develops yellowish or greenish drainage or development of white pimple-like bumps You experience excessive pain You develop swelling in your ankles You experience muscle switching You develop excessive hiccupping If you experience chest pain, shortness of breath, dizziness, or extreme tiredness, stop the activity and rest. Please notify [facility] office if you experience any of these symptoms and they are not relieved by rest please call 911! (2) Bradycardia Current Visit: Yes Status: Acute (3) Syncope Current Visit: Yes Status: Acute D/t bradycardia and AV block. S/p PPM. Qualifiers: Syncope type: unspecified Qualified Code(s): R55 - Syncope and collapse Discussion w patient/family: The assessment and plan as outlined above was discussed with the patient and/or family members who expressed understanding and agreement. All questions were answered. Thank you for involving us in the care of your patient. Please call with any questions. Subjective Principal diagnosis: symptomatic bradycardia, 2nd degree AV block. Interval history: Ms. Crow is without complaint today. Denies pain at PPM insertion site. Objective Vital Signs, Last 4 Hours Temp Pulse Resp BP Pulse Ox 09/11/18 09:25 66 20 132/46 95 09/11/18 08:00 67 20 153/61 97 09/11/18 07:35 98.0 F General: Conversant, No Apparent Distress HEENT: Atraumatic, Normocephaly, Mucus Membranes Moist Neck: No JVD, Normal carotid pulses Cardiac: Reg Rate and Rhythm, Normal S1 and S2, No Murmur, Other (SIRISHA dressing d/I, no redness or drainage. ) Lungs: Normal Breath Sounds, No Wheeze, Rales, Rhonchi Neuro: Alert and responsive, No focal deficits noted Abdomen: Soft, Non-Tender Skin: No rashes noted on visualized skin Musculoskeletal: No Chest Wall Tenderness Extremities: No Clubbing, No Cyanosis, No Edema, Normal Pulses Results 09/11/18 00:42 09/11/18 00:42 Lab Results 09/10/18 09/11/18 09/11/18 09:42 00:42 00:42 WBC 5.8 Hgb 10.4 L Hct 31.6 L Plt Count 196 Sodium 140 Potassium 4.0 Chloride 110 H Carbon Dioxide 25 BUN 23 H Creatinine 0.65 Glucose 83 Calcium 8.7 Troponin I < 0.03 - Imaging and Cardiology Echo: report reviewed - EKG Interpretation EKG results cardiology: personally reviewed Consult Discharge Plan - Plan Referrals: Dat Briceño [Primary Care Provider] -
--- NOTE | 2018-09-11 13:16 | Discharge Summary ---
<Alondra Perez E - Last Filed: 09/11/18 13:50> Orders not resulted at time of discharge: Pending orders 09/10/18 06:00 ECG 12 lead ECG [ECG] AM 0600 09/10/18 11:45 CL Insert Permanent Pacemaker [CL] Routine 09/11/18 06:00 XR chest 2V [XR] Routine Date of Encounter: 09/11/18 Time of Encounter: 09:30 - Discharge Diagnosis (1) Bradycardia Priority: Primary Status: Acute (2) DVT prophylaxis Priority: Secondary Status: Acute (3) Head injury Priority: Primary Status: Acute Qualifiers: Encounter type: initial encounter Qualified Code(s): S09.90XA - Unspecified injury of head, initial encounter (4) Second degree AV block Priority: Primary Status: Acute (5) Syncope Priority: Primary Status: Acute Qualifiers: Syncope type: unspecified Qualified Code(s): R55 - Syncope and collapse Hospital course: Ms. Crow is a 58 year old female with history of Charcot foot, DM, HTN, VTK, below the knee amputation on the left, gastric bypass, cataract surgery left eye. Presented with bradycardia after unwitnessed syncopal episode after she reached over to [employer] shelf she had her vision gets very bright and then she fell backwards and hit her head after passing out. She denied any chest pain, palpitations, dyspnea, nausea, vomiting on admission. 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 She had a few other instances of lites getting very bright and feeling off balance she was able to sit down before she passed out. On arrival to the ED she was asymptomatic and heart rate in the 30s to 40s, hemodynamically stable with systolic blood press ures of [address] showed negative for any acute intracranial abnormalities but did show a hematoma. CT cervical spine negative for fracture. Chest x-ray no acute cardiopulmonary process. Labs showed no significant derangements. EKG showed sinus bradycardia was secondary AV block. Atropine and glucagon were used to try to raise her heart rate these failed, transcutaneous pacer pads were placed and she was admitted to the ICU. On further evaluation cardiology reported both a Mobitz type I and Mobitz type II. She was taken for pacemaker insertion yesterday. No complications of the surgery. Patient is to follow-up with cardiology for further recommendations. Discharge discussed with: patient - Time Spent with Patient Total time spent providing and/or coordinating discharge services: - Discharge Medications Prescriptions: Continued Pregabalin [Lyrica] 100 mg PO BID Venlafaxine HCl [Venlafaxine HCl ER] 75 mg PO DAILY Aspirin [Adult Aspirin] 81 mg PO DAILY PrednisoLONE Acetate 1% Opth [PredFORTE 1%] 1 drop LEFT EYE BID Ketorolac OPTH Soln [Acular] 1 drop LEFT EYE BID Gatifloxacin [Zymaxid] 2.5 ml LEFT EYE BID Home Medications: Pregabalin [Lyrica] 100 mg PO BID 07/25/17 [History] Venlafaxine HCl [Venlafaxine HCl ER] 75 mg PO DAILY 07/25/17 [History] Aspirin [Adult Aspirin] 81 mg PO DAILY 09/10/18 [History] Gatifloxacin [Zymaxid] 2.5 ml LEFT EYE BID 09/10/18 [History] Ketorolac OPTH Soln [Acular] 1 drop LEFT EYE BID 09/10/18 [History] PrednisoLONE Acetate 1% Opth [PredFORTE 1%] 1 drop LEFT EYE BID 09/10/18 [History] Allergies/Adverse Reactions: Allergy/AdvReac Type Severity Reaction Status Date / Time codeine Allergy Mild Rash Verified 07/25/17 14:28 lisinopril Allergy Anaphylaxis Verified 07/25/17 14:28 meperidine [From Demerol] Allergy Rash Verified 07/25/17 14:29 Date of admission: 09/10/18 06:20 Primary care physician: Dat Briceño Consults: 09/10/18 00:40 Consult to Cardiology [CONS] Stat Comment: Spoke with Dr. Harris Consulting Provider: Cardiology [facility] Reason for Consult: bradycardia Time Notified: 00:40 Call Completed: Yes Discharging clinician: Magui Sanchez Anticipated date of discharge: 09/11/18 - Constitutional Vitals: Temp Pulse Resp BP Pulse Ox 98.3 F 62 20 165/62 96 09/11/18 11:00 09/11/18 12:00 09/11/18 12:00 09/11/18 11:00 09/11/18 12:00 General appearance: Present: A&O X 3, pleasant, no acute distress Exam: General: AAO 3, answers questions appropriately, no acute distress Head: normocephalic, atraumatic Eyes: KATHY, no icterus Cardio: RRR, no mumurs, rubs, or gallops Respiratory: CTAB, no wheezing, rhonchi, rales Abd: normal bowel sounds, no gaurding or rigidity Extremties: no peda edema, pulses equal bilaterally, warm Skin: warm, dry, intact - Patient Status Disposition: Home, Self-Care Condition: Good Functional capacity at discharge: independent ambulation Overall status at discharge: patient is back to baseline - Discharge Instructions Follow Up With: Dat Briceño [Primary Care Provider] - Pio Tabor MD [Partnered Physician] - Additional Instructions: ACTIVITY: Moderate activity for the next 7 days. No lifting more than 5 pounds (gallon of milk) for 4-6 weeks. Avoid lifting your arm on the same side as the device for 4 weeks. BATHING /SHOWERING: Do not remove the large bandage over the site for 2 days. Do not allow the device to get wet for 7-10 days. You may bathe/shower, but do not use soap and water on the site. When bathing, keep the site dry by covering with Saran wrap or a towel. WOUND CARE: The white steri-strips will start to peel away and come off after 14 days, or your doctor will remove them after [address] anything into or on top of the incision. Do not use cotton swabs. Do not use any antibiotic ointment or Vitamin E on the site. REMINDERS: You may use electrical devices, such as, microwaves, hair dryers, electric razors, electric blankets, etc. as long as they are in good condition and kept 6-8 inches away from the device. It is recommended to use cell phones on the opposite side of your device. Notify security personnel at the airport that you have a device before you go through airport security screening. When at places with security monitors, such as a grocery store, do not linger near these monitors. It is fine to walk past them in a normal manner. Refer to your owners manual for more specific directions. CARRY YOUR PACEMAKER/ICD CARD WITH YOU AT ALL TIMES Return to work as instructed per physician Resume driving as instructed per physician Keep all scheduled follow up appointments Resume medications as instructed Contact [facility] ( ) if: You develop excessive bleeding from insertion or wound site not controlled by applying pressure You develop a fever greater than 101 degrees Fahrenheit Your incision becomes reddened at or around the site Your incision develops yellowish or greenish drainage or development of white pimple-like bumps You experience excessive pain You develop swelling in your ankles You experience muscle switching You develop excessive hiccupping If you experience chest pain, shortness of breath, dizziness, or extreme tiredness, stop the activity and rest. Please notify [facility] office if you experience any of these symptoms and they are not relieved by rest please call 911! - Diet and Activity Activity: increase activity as tolerated Diet: advance to your usual diet <Magui Sanchez - Last Filed: 09/11/18 14:47> Orders not resulted at time of discharge: Pending orders 09/10/18 06:00 ECG 12 lead ECG [ECG] AM 0600 09/10/18 11:45 CL Insert Permanent Pacemaker [CL] Routine Date of Encounter: 09/11/18 Time of Encounter: 12:00 - Discharge Diagnosis (1) Bradycardia Status: Acute (2) Syncope Status: Acute Qualifiers: Syncope type: unspecified Qualified Code(s): R55 - Syncope and collapse (3) DVT prophylaxis Status: Acute (4) History of gastric bypass Status: Acute (5) History of left below knee amputation Status: Acute Hospital course: Ms. Crow is a 58 year old female - Time Spent with Patient Total time spent providing and/or coordinating discharge services: Date of admission: 09/10/18 06:20 Primary care physician: Dat Briceño Consults: 09/10/18 00:40 Consult to Cardiology [CONS] Stat Comment: Spoke with Dr. Harris Consulting Provider: [facility] Reason for Consult: bradycardia Time Notified: 00:40 Call Completed: Yes - Constitutional Vitals: Temp Pulse Resp BP Pulse Ox 98.3 F 64 20 152/63 95 09/11/18 11:00 09/11/18 14:00 09/11/18 14:00 09/11/18 14:00 09/11/18 14:00 - Attending Attestation I saw evaluated and examined this patient and my medical decision-making was reviewed with the Resident Physician, Alondra Perez. I agree with the documented findings, disposition and treatment plan as described except to any changes set forth below. We independently had [id number] contact with the patient. Patient with a history of diabetes mellitus, hypertension, Prior gastric bypass surgery and left BKA was hospitalized here with episodes of bradycardia associated with dizziness and syncopal episodes. She was noted to be bradycardic and EKG shows intermittent 2:1 and Mobitz type I AV block. She was evaluated by electrophysiology and recommended permanent pacemaker placement. She underwent the procedure yesterday and since then has been doing well. She has been cleared for discharge by cardiology. She will follow up with them in clinic for further management. On exam, patient is awake and alert. Breath sounds are normal. S1 and S2 normal. Patient is status post left BKA. Has a prosthetic leg in place.
[2018-09-11 14:29] VITALS: BP 152/63
== END 2018-09-11 16:10 | disposition home or self-care (01) | DRG 244 ==
LOC: ICNU 22:30 → EMEROOARM 22:30 → ICNU 09-10 01:38 → SUATTDRO 09-10 06:20
PROVIDERS: ADMIT Family Medicine; ATTEND Internal Medicine